=== PATIENT | male | born 1935 | race Caucasian/White ===

== ENCOUNTER 2018-04-09 14:10 | Inpatient (IN) | payer MEDICARE, BC ==
--- NOTE | 2018-04-09 14:26 | ED ---
General Adult HPI - General Chief complaint: Neuro Symptoms/Deficit Stated complaint: poss mild stroke Source: patient Mode of arrival: wheelchair Limitations: no limitations - History of Present Illness Initial comments: Dictation was produced using [employer] dictation software. please excuse any grammatical, word or spelling errors. Chief Complaint: 82-year-old male past medical history of CVA presents with instructions from prior care physician to be worked up for CVA. History of Present Illness: He is 82-year-old male who has been having symptoms of intermittent dizziness, difficulty ambulating for approximately one week. He was seen by his primary care physician today to come to the emergency department for stroke workup. Patient wasn't even having these symptoms for one week. He was seen 3 or 4 days ago where he was thought to have respiratory infection. She states that she feels as though his symptoms are worse with sudden head movements. He reports that he had his gait analyzed at the primary care physician's office and he reports that he is unable to do heel-to-toe walking. Patient also does feel ataxic with his extremities worse on the left than the right. She has extensive history of CVAs. The ROS documented in this emergency department record has been reviewed and confirmed by me. Those systems with pertinent positive or negative responses have been documented in the HPI. All other systems are other negative and/or noncontributory. - Related Data Home Medications Medication Instructions Recorded Confirmed Hydrochlorothiazide [Hydrodiuril] 12.5 mg PO DAILY 03/11/15 04/09/18 Omeprazole [PriLOSEC] 20 mg PO AC-BRKFST 03/11/15 04/09/18 Fosinopril [Monopril] 10 mg PO DAILY 04/09/18 04/09/18 Multivitamins, Thera [Multivitamin 1 tab PO DAILY 04/09/18 04/09/18 (formulary)] Propylene Glycol [Systane Complete] 1 drop BOTH EYES BID 04/09/18 04/09/18 carBAMazepine [TEGretol] 200 mg PO BID 04/09/18 04/09/18 Previous Rx's Medication Instructions Recorded Atorvastatin [Lipitor] 80 mg PO HS #30 tab 03/11/15 Clopidogrel [Plavix] 75 mg PO DAILY #30 tab 03/11/15 Allergies Allergy/AdvReac Type Severity Reaction Status Date / Time ibuprofen [From Advil] Allergy Swelling Verified 04/09/18 14:56 naproxen [From Aleve] Allergy Swelling Verified 04/09/18 14:56 Review of Systems ROS Statement: Those systems with pertinent positive or pertinent negative responses have been documented in the HPI. ROS Other: All systems not noted in ROS Statement are negative. Past Medical History Past Medical History: CVA/TIA, GERD/Reflux, Hyperlipidemia, Hypertension History of Any Multi-Drug Resistant Organisms: None Reported Past Surgical History: Appendectomy, Hernia Repair, Tonsillectomy Past Anesthesia/Blood Transfusion Reactions: No Reported Reaction Past Psychological History: No Psychological Hx Reported Smoking Status: Never smoker Past Alcohol Use History: None Reported Past Drug Use History: None Reported General Exam - General Exam Comments Initial Comments: PHYSICAL EXAM: General Impression: Alert and oriented x3, not in acute distress HEENT: Normocephalic atraumatic, extra-ocular movements intact, pupils equal and reactive to light bilaterally, mucous membranes moist. Cardiovascular: Heart regular rate and rhythm, S1&S2 audible, no murmurs, rubs or gallops Chest: Lungs clear to auscultation bilaterally, no rhonchi, no wheeze, no rales Abdomen: Bowel sounds present, abdomen soft, non-tender, non-distended, no organomegaly Musculoskeletal: Pulses present and equal in all extremities, no peripheral edema Motor: Power 5/5 bilaterally, no focal deficits noted Neurological: CN II-XII grossly intact, no focal motor or sensory deficits noted while ataxia with gait Skin: Intact with no visualized rashes Psych: Normal affect and mood Limitations: no limitations Course Vital Signs 04/09/18 14:13 Temperature 97.9 F Pulse Rate 66 Respiratory 18 Rate Blood Pressure 170/81 O2 Sat by Pulse 97 Oximetry Medical Decision Making - Medical Decision Making ED course: 82 yo male sent in by his primary care physician for stroke workup. Patient has been having symptoms for one week. Patient had a candidate for TPA or neurovascular therapy given duration of symptoms. Vital signs upon arrival shows blood pressure 170/81. Discussed patient case with Dr. Jaimes who believes that patient is abnormal. He is worried about vertebrobasilar insufficiency or posterior stroke. Patient is showing physical signs of possible vertebrobasilar insufficiency. Computed tomography scan of the head was obtained showing no acute process. Labs and EKG are unremarkable. Patient given aspirin chest x-ray shows no acute processes. Patient be admitted to [facility]. Neurology on consult. EKG interpretation: Ventricular rate 66, RI interval 174, QRS 84, QTC 429, normal sinus rhythm. No RI prolongation, no QTC prolongation, no ST or T-wave changes noted. Overall, this EKG is unremarkable - Lab Data Result diagrams: 04/09/18 14:35 04/09/18 14:35 Lab Results 04/09/18 04/09/18 04/09/18 Range/Units 14:35 14:35 14:35 WBC 5.7 (3.8-10.6) k/uL RBC 5.15 (4.30-5.90) m/uL Hgb 15.3 (13.0-17.5) gm/dL Hct 46.6 (39.0-53.0) % MCV 90.4 (80.0-100.0) fL MCH 29.8 (25.0-35.0) pg MCHC 32.9 (31.0-37.0) g/dL RDW 12.4 (11.5-15.5) % Plt Count 206 (150-450) k/uL Neutrophils % 57 % Lymphocytes % 25 % Monocytes % 9 % Eosinophils % 4 % Basophils % 1 % Neutrophils # 3.2 (1.3-7.7) k/uL Lymphocytes # 1.4 (1.0-4.8) k/uL Monocytes # 0.5 (0-1.0) k/uL Eosinophils # 0.2 (0-0.7) k/uL Basophils # 0.0 (0-0.2) k/uL PT (9.0-12.0) sec INR (<1.2) APTT (22.0-30.0) sec Sodium 133 L (137-145) mmol/L Potassium 3.9 (3.5-5.1) mmol/L Chloride 94 L (98-107) mmol/L Carbon Dioxide 29 (22-30) mmol/L Anion Gap 10 mmol/L BUN 15 (9-20) mg/dL Creatinine 0.83 (0.66-1.25) mg/dL Est GFR (CKD-EPI)AfAm >90 (>60 ml/min/1.73 sqM) Est GFR (CKD-EPI)NonAf 82 (>60 ml/min/1.73 sqM) Glucose 95 (74-99) mg/dL Calcium 9.4 (8.4-10.2) mg/dL Total Bilirubin 0.6 (0.2-1.3) mg/dL AST 46 (17-59) U/L ALT 27 (21-72) U/L Alkaline Phosphatase 96 (38-126) U/L Total Creatine Kinase 78 (55-170) U/L CK-MB (CK-2) 1.1 (0.0-2.4) ng/mL CK-MB (CK-2) Rel Index 1.4 Troponin I <0.012 (0.000-0.034) ng/mL Total Protein 7.7 (6.3-8.2) g/dL Albumin 4.2 (3.5-5.0) g/dL 04/09/18 Range/Units 14:35 WBC (3.8-10.6) k/uL RBC (4.30-5.90) m/uL Hgb (13.0-17.5) gm/dL Hct (39.0-53.0) % MCV (80.0-100.0) fL MCH (25.0-35.0) pg MCHC (31.0-37.0) g/dL RDW (11.5-15.5) % Plt Count (150-450) k/uL Neutrophils % % Lymphocytes % % Monocytes % % Eosinophils % % Basophils % % Neutrophils # (1.3-7.7) k/uL Lymphocytes # (1.0-4.8) k/uL Monocytes # (0-1.0) k/uL Eosinophils # (0-0.7) k/uL Basophils # (0-0.2) k/uL PT 10.4 (9.0-12.0) sec INR 1.0 (<1.2) APTT 27.1 (22.0-30.0) sec Sodium (137-145) mmol/L Potassium (3.5-5.1) mmol/L Chloride (98-107) mmol/L Carbon Dioxide (22-30) mmol/L Anion Gap mmol/L BUN (9-20) mg/dL Creatinine (0.66-1.25) mg/dL Est GFR (CKD-EPI)AfAm (>60 ml/min/1.73 sqM) Est GFR (CKD-EPI)NonAf (>60 ml/min/1.73 sqM) Glucose (74-99) mg/dL Calcium (8.4-10.2) mg/dL Total Bilirubin (0.2-1.3) mg/dL AST (17-59) U/L ALT (21-72) U/L Alkaline Phosphatase (38-126) U/L Total Creatine Kinase (55-170) U/L CK-MB (CK-2) (0.0-2.4) ng/mL CK-MB (CK-2) Rel Index Troponin I (0.000-0.034) ng/mL Total Protein (6.3-8.2) g/dL Albumin (3.5-5.0) g/dL Disposition Clinical Impression: CVA (cerebral vascular accident) Disposition: ADMITTED IP TO THIS HOSP Condition: Fair Referrals: Serafin Jimenes DO [Primary Care Provider] - 1-2 days Decision Time: 16:12
[2018-04-09 14:57] LABS: Basophils % (A) 1 %; Eosinophils # (A) 0.2 k/uL (0-0.7); Eosinophils % (A) 4 %; HCT 46.6 % (39.0-53.0); HGB 15.3 gm/dL (13.0-17.5); Lymphocytes # (A) 1.4 k/uL (1.0-4.8); Lymphocytes % (A) 25 %; MCH 29.8 pg (25.0-35.0); MCHC 32.9 g/dL (31.0-37.0); MCV 90.4 fL (80.0-100.0); Mean Platelet Volume 6.8; Monocytes # (A) 0.5 k/uL (0-1.0); Monocytes % (A) 9 %; Neutrophils # (A) 3.2 k/uL (1.3-7.7); Neutrophils % (A) 57 %; Platelet Count 206 k/uL (150-450); RBC 5.15 m/uL (4.30-5.90); RDW 12.4 % (11.5-15.5); WBC 5.7 k/uL (3.8-10.6)
[2018-04-09 14:59] LABS: Partial Thromboplastin Time 27.1 sec (22.0-30.0); Prothrombin Time 10.4 sec (9.0-12.0)
[2018-04-09 15:04] LABS: Creatine Kinase 78 U/L (55-170)
[2018-04-09 15:05] LABS: ALT 27 U/L (21-72); AST 46 U/L (17-59); Albumin 4.2 g/dL (3.5-5.0); Alkaline Phosphatase 96 U/L (38-126); Anion Gap 10 mmol/L; Blood Urea Nitrogen 15 mg/dL (9-20); Calcium 9.4 mg/dL (8.4-10.2); Carbon Dioxide 29 mmol/L (22-30); Chloride 94 mmol/L (98-107); Glucose 95 mg/dL (74-99); Potassium 3.9 mmol/L (3.5-5.1); Sodium 133 mmol/L (137-145); Total Bilirubin 0.6 mg/dL (0.2-1.3); Total Protein 7.7 g/dL (6.3-8.2)
[2018-04-09 15:16] LABS: Creatine Kinase MB 1.1 ng/mL (0.0-2.4); Troponin I <0.012 ng/mL (0.000-0.034)
--- NOTE | 2018-04-09 15:24 | CT ---
EXAMINATION TYPE: CT brain wo con DATE OF EXAM: 04/09/2018 COMPARISON: 03/10/2015 HISTORY: History of TIA. Difficulty with speech and dizziness. CT DLP: 1068.4 mGycm Automated exposure control for dose reduction was used. FINDINGS: Mild generalized degenerative change. White matter low attenuation is nonspecific but most typical of remote microvascular ischemia. No midline shift or mass effect. Calvarium intact. Changes of chronic sinusitis noted. Intracranial atherosclerotic changes are noted. 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 Calcification the basal ganglia is stable IMPRESSION: 1. No acute hemorrhage or mass effect. Nonspecific white matter changes and degenerative changes. If there is concern for acute ischemia correlate with MRI as clinically warranted.
[2018-04-09] MEDS ORDERED: NALOXONE 0.4 MG/ML 1 ML VIAL IV PRN (16:06)
[2018-04-09] MEDS ORDERED: ASPIRIN 81 MG PO STA (16:07)
--- NOTE | 2018-04-09 16:13 | XR ---
EXAMINATION TYPE: XR chest 1V portable DATE OF EXAM: 04/09/2018 COMPARISON: NONE HISTORY: Altered mental status TECHNIQUE: Single frontal view of the chest is obtained. FINDINGS: There are overlying cardiac leads. There is no focal air space opacity, pleural effusion, o r pneumothorax seen. The cardiac silhouette size is within normal limits. The osseous structures a re intact. IMPRESSION: No acute process.
[2018-04-09] MEDS ORDERED: ACETAMINOPHEN TAB 325 MG TAB PO PRN (16:51)
[2018-04-09] MEDS: SODIUM CHLORIDE 0.9% 1,000 ML IV SCH (16:51)
[2018-04-09] MEDS ORDERED: HYDROcodone/APAP 5-325MG 1 EACH TAB PO PRN (16:51)
--- NOTE | 2018-04-09 17:18 | P.HPIM ---
History of Present Illness H&P Date: 04/09/18 Chief Complaint: Ataxia, slurred speech 82-year-old male with PMH of hypertension, hyperlipidemia, 3 previous TIAs in the past presents the ED for ataxia and slurred speech. Patient states that his symptoms have been ongoing since last weekend, April 03. Patient reports a constellation of symptoms. Patient complains of dizziness which he describes as vertigo. His dizziness is worsened with sudden movements of his head. Along with the dizziness, patient reports intermittent double vision and gait instability. He was seen last Thursday by his PCP for nausea and vomiting along with some shortness of breath and he was diagnosed with a viral URI. He had a follow-up with his PCP this morning. Patient continued to complain of worsening of these symptoms, had an elevated blood pressure, and had a positive Romberg. He was unable to walk from toe to toe. This prompted his PCP to call EMS. Patient also complains of slowed thinking and wrong pronunciation of words. Patient also complains of chronic headaches, but associates this with his sinus issues. Previously, he was able to ambulate fine without any assistive devices. Patient also claims that he had no memory issues. Patient reports a history of 3 TIAs with no residual weakness. Of note, patient states he fell 3 weeks ago, hitting his head and twisting his ankle. He denied any loss of consciousness at that time and states that it was a mechanical fall. Patient denies any lower extremity swelling, nausea, vomiting, fever, cough, chest pain, shortness of breath, palpitations, changes in urination or bowel habits. No changes in appetite or weight. Patient states that he lives with his and he is well taken care of. His son lives next door and frequently visits the couple. Patient states that he would like for his to make decisions for him if he is unable to do so. Patient would also like to remain full code. In the ED, CBC and coagulation panel was negative. CMP was unremarkable except for a sodium of 133 and chloride of 94. Initial troponin was less than 0.012, EKG showing normal sinus rhythm with left axis deviation. CT of the brain was negative for acute hemorrhage or mass effect. Patient is admitted for ataxia and slurred speech, rule out CVA. Neurology is on consult. Review of Systems All systems: negative Past Medical History Past Medical History: CVA/TIA, GERD/Reflux, Hyperlipidemia, Hypertension History of Any Multi-Drug Resistant Organisms: None Reported Past Surgical History: Appendectomy, Hernia Repair, Tonsillectomy Past Anesthesia/Blood Transfusion Reactions: No Reported Reaction Past Psychological History: No Psychological Hx Reported Smoking Status: Never smoker Past Alcohol Use History: None Reported Past Drug Use History: None Reported Medications and Allergies Home Medications Medication Instructions Recorded Confirmed Type Atorvastatin [Lipitor] 80 mg PO HS #30 tab 03/11/15 04/09/18 Rx Clopidogrel [Plavix] 75 mg PO DAILY #30 tab 03/11/15 04/09/18 Rx Hydrochlorothiazide [Hydrodiuril] 12.5 mg PO DAILY 03/11/15 04/09/18 History Omeprazole [PriLOSEC] 20 mg PO AC-BRKFST 03/11/15 04/09/18 History Fosinopril [Monopril] 10 mg PO DAILY 04/09/18 04/09/18 History Multivitamins, Thera [Multivitamin 1 tab PO DAILY 04/09/18 04/09/18 History (formulary)] Propylene Glycol [Systane Complete] 1 drop BOTH EYES BID 04/09/18 04/09/18 History carBAMazepine [TEGretol] 200 mg PO BID 04/09/18 04/09/18 History Allergies Allergy/AdvReac Type Severity Reaction Status Date / Time ibuprofen [From Advil] Allergy Swelling Verified 04/09/18 14:56 naproxen [From Aleve] Allergy Swelling Verified 04/09/18 14:56 Physical Exam Vitals: Vital Signs Temp Pulse Resp BP Pulse Ox 04/09/18 16:45 72 27 H 185/109 97 04/09/18 16:38 65 46 H 178/118 97 04/09/18 14:13 97.9 F 66 18 170/81 97 Intake and Output 04/09/18 04/09/18 04/09/18 06:59 14:59 22:59 Other: Weight 77.564 kg General: [non toxic], [no distress], [appears at stated age] Derm: [warm], [dry] Head: [atraumatic], [normocephalic], [symmetric] Eyes: [EOMI], [no lid lag], [anicteric sclera] Mouth: [no lip lesion], [mucus membranes moist] Cardiovascular: [S1S2 reg], [no murmur], [positive DP pulse bilateral] Lungs: [CTA bilateral], [no rhonchi, no rales] , [no accessory muscle use] Abdominal: [soft], [ nontender to palpation], [no guarding], [no appreciable organomegaly] Ext: [no gross muscle atrophy], [no edema], [no contractures] Neuro: [ CN II-XI grossly intact], [strength and sensation intact in all 4 extremities], [gait not tested] Psych: [Alert], [oriented], [appropriate affect] Results CBC & Chem 7: 04/09/18 14:35 04/09/18 14:35 Labs: Abnormal Lab Results - Last 24 Hours (Table) 04/09/18 Range/Units 14:35 Sodium 133 L (137-145) mmol/L Chloride 94 L (98-107) mmol/L Thrombosis Risk Factor Assmnt - Choose All That Apply Any of the Below Risk Factors Present?: No Other Risk Factors: No Each Risk Factor Represents 3 Points: Age 75 years or older Thrombosis Risk Factor Assessment Total Risk Factor Score: 3 Thrombosis Risk Factor Assessment Level: Very Low Risk Assessment and Plan Assessment: Assessment and Plan 1. Ataxia: Possibly CVA, brainstem stroke. CT brain shows no acute intracranial abnormalities. Start Plavix 75 mg PO QD and Lipitor 80 mg PO QHS. Fall precautions. Neurochecks. Telemetry monitoring. Swallow screen pending. FU PT/OT/ST, Neurology, Echocardiogram, Carotid US, EEG, MRI brain, Lipid panel 2. Hypertension: BP 183/115. Continue Lisinopril 10 mg PO QD, HCTZ 12.5 mg PO QD. Monitor vitals, adjust medications as necessary. 3. DVT/GI Prophylaxis: Heparin 5000 units SUBCUT BID. Patient is being admitted for ataxia, slurred speech and vertigo-like symptoms. Concern for brainstem CVA, stroke workup underway. Neurology on consult.
[2018-04-09] MEDS ORDERED: LORazepam 2 MG/ML INJ IV STA (17:38)
[2018-04-09 18:18] VITALS: BMI 25.9
[2018-04-09] MEDS: FAMOTIDINE 20 MG TAB PO SCH ×2 (20:06→20:14)
[2018-04-09] MEDS: ARTIFICIAL TEARS-HYPROMELLOSE DROPS 15 ML BTL BOTH EYES SCH (20:07)
[2018-04-09] MEDS: HEPARIN SODIUM,PORCINE 5,000 UNIT/ML 1 ML VIAL SQ SCH (20:13)
[2018-04-09] MEDS: ATORVASTATIN 80 MG TAB PO SCH (20:13)
[2018-04-09] MEDS: carBAMazepine 200 MG TAB PO SCH (20:13)
--- NOTE | 2018-04-09 20:23 | MR ---
EXAMINATION TYPE: MR brain wo con DATE OF EXAM: 04/09/2018 COMPARISON: HISTORY: HX of Prior Strokes, Headaches, Left sided weakness, Unstaedy Stella Standard multiplanar, multisequence MRI departmental protocol Multiplanar, multisequence images of the brain were acquired. Diffusion weighted imaging was performe d. FINDINGS: There is diffuse cerebral cortical atrophy. There is no mass effect nor midline shift. Ther e is no evidence of intracranial hemorrhage. I see no evidence of an acute infarct. There are numerou s patchy areas of increased signal in the periventricular white matter mainly at the hansen-white matte r junction of both cerebral hemispheres. There is sparing of the cerebellum. Foci measure up to 1 cm. Total number is approximately 25. The brainstem is intact. Corpus callosum is intact. Sella turcica is unremarkable. There is minimal m ucosal thickening in the anterior ethmoid air cells. There is 1 cm mucous retention cyst in the poste rior sphenoid sinus. IMPRESSION: Cerebral atrophy and multiple white matter high signal foci in both cerebral hemispheres at the hansen- white matter junction more likely related to chronic small vessel ischemia. No evidence of cortical i nfarct. Mild sinusitis.
--- NOTE | 2018-04-09 22:58 | US ---
EXAMINATION TYPE: US carotid duplex BILAT DATE OF EXAM: 04/09/2018 COMPARISON: MR Brain, US CLINICAL HISTORY: CVA. Left foot weakness, memory loss, prior TIA x 3 per patient EXAM MEASUREMENTS: RIGHT: Peak Systolic Velocity (PSV) cm/sec ----- Right CCA: 45.9 ----- Right ICA: 74.3 ----- Right ECA: 88.1 ICA/CCA ratio: 1.6 RIGHT: End Diastole cm/sec ----- Right CCA: 0.0 ----- Right ICA: 12.8 ----- Right ECA: 0.0 LEFT: Peak Systolic Velocity (PSV) cm/sec ----- Left CCA: 51.7 ----- Left ICA: 55.9 ----- Left ECA: 74.3 ICA/CCA ratio: 1.1 LEFT: End Diastole cm/sec ----- Left CCA: 0.0 ----- Left ICA: 14.0 ----- Left ECA: 0.0 VERTEBRALS (direction of flow): Right Vertebral: Antegrade Left Vertebral: Antegrade Rhythm: Normal Moderate, irregular, and mixed wall changes are noted at bilateral carotid bifurcation, but PSV is wn l bilaterally. IMPRESSION: There is antegrade flow in the vertebral arteries. Images and measurements suggest up to 25% stenosis in both internal carotid arteries. Criteria for Assigning % of Stenosis / Diameter reduction (Estimation based on the indirect measurements of the internal carotid artery velocities (ICA PSV). 1. Normal (no stenosis)=ICA PSV < 125 cm/s: ratio < 2.0: ICA EDV<40 cm/s. 2. Less than 50% stenosis=ICA PSV < 125 cm/s: ratio < 2.0: ICA EDV<40 cm/s. 3. 50 to 69% stenosis=ICA PSV of 125 to 230 cm/s: ration 2.0 ? 4.0: ICA EDV 40-100 cm/s. 4. Greater than 70% stenosis to near occlusion= ICA PSV > 230 cm/s: ratio > 4.0: ICA EDV > 100 cm/s. 5. Near occlusion= ICA PSV velocities may be low or undetectable: variable ratio and ICA EDV. 6. Total occlusion=unable to detect flow.
[2018-04-10 08:07] LABS: Cholesterol 184 mg/dL (<200); HDL Cholesterol 78 mg/dL (40-60); LDL Cholesterol,Calculated 84 mg/dL (0-99); Triglycerides 110 mg/dL (<150)
[2018-04-10] MEDS: ARTIFICIAL TEARS-HYPROMELLOSE DROPS 15 ML BTL BOTH EYES SCH ×2 (09:59→19:18)
[2018-04-10] MEDS: carBAMazepine 200 MG TAB PO SCH ×2 (10:00→20:24)
[2018-04-10] MEDS: HYDROCHLOROTHIAZIDE 12.5 MG CAP PO SCH (10:00)
[2018-04-10] MEDS: CLOPIDOGREL 75 MG TAB PO SCH (10:00)
[2018-04-10] MEDS: LISINOPRIL 10 MG TAB PO SCH (10:00)
[2018-04-10] MEDS: FAMOTIDINE 20 MG TAB PO SCH ×2 (10:01→20:24)
[2018-04-10] MEDS: HEPARIN SODIUM,PORCINE 5,000 UNIT/ML 1 ML VIAL SQ SCH ×2 (10:01→20:24)
--- NOTE | 2018-04-10 10:19 | ECHOF ---
Referral Reason:CVA MEASUREMENTS -------- HEIGHT: 172.7 cm WEIGHT: 77.6 kg BP: 128/69 RVIDd: 2.2 cm (< 3.3) IVSd: 1.1 cm (0.6 - 1.1) LVIDd: 3.9 cm (3.9 - 5.3) LVPWd: 1.3 cm (0.6 - 1.1) IVSs: 1.7 cm LVIDs: 2.6 cm LVPWs: 1.6 cm LAESV Index (A-L): 18.97 ml/m Ao Diam: 3.3 cm (2.0 - 3.7) AV Cusp: 2.0 cm (1.5 - 2.6) LA Diam: 2.2 cm (2.7 - 3.8) MV EXCURSION: 12.495 mm (> 18.000) MV EF SLOPE: 83 mm/s (70 - 150) EPSS: 0.9 cm MV E Lauro: 0.58 m/s MV DecT: 238 ms MV A Lauro: 0.88 m/s MV E/A Ratio: 0.65 RAP: 5.00 mmHg RVSP: 20.19 mmHg FINDINGS -------- Sinus rhythm. This was a technically good study. The left ventricular size is normal. There is borderline concentric left ventricular hypertrophy. Overall left ventricular systolic function is normal with, an EF between 55 - 60 %. The right ventricle is normal in size and function. The left atrium is normal in size. The right atrium is normal in size. The aortic valve is trileaflet and appears structurally normal. There is trace mitral regurgitation. Mild tricuspid regurgitation present. The right ventricular systolic pressure, as measured by Doppl er, is 20.19mmHg. The pulmonic valve was not well visualized. The aortic root size is normal. IVC Not well visulized. The pericardium is normal. There is a small pericardial effusion is located near the right ventricl e. CONCLUSIONS -------- 1. Sinus rhythm. 2. This was a technically good study. 3. The left ventricular size is normal. 4. There is borderline concentric left ventricular hypertrophy. 5. Overall left ventricular systolic function is normal with, an EF between 55 - 60 %. 6. The right ventricle is normal in size and function. 7. The left atrium is normal in size. 8. The right atrium is normal in size. 9. The aortic valve is trileaflet and appears structurally normal. 10. There is trace mitral regurgitation. 11. Mild tricuspid regurgitation present. 12. The right ventricular systolic pressure, as measured by Doppler, is 20.19mmHg. 13. The pulmonic valve was not well visualized. 14. The aortic root size is normal. 15. IVC Not well visulized. 16. The pericardium is normal. 17. There is a small pericardial effusion is located near the right ventricle. GENER[employer] MANAGER: Sugey Woods RDCS
--- NOTE | 2018-04-10 12:38 | EEG ---
ELECTROENCEPHALOGRAM REPORT DATE OF SERVICE: 04/10/2018 REASON FOR TESTING: Transient ischemic attack. DESCRIPTION OF THE PROCEDURE: This EEG was performed using a 21-channel digital electroencephalograph, following international 10-20 system. DESCRIPTION OF THE RECORDING: From the beginning of the tracing, and with the patient's eyes closed, the background rhythm was mostly consisting of 8 hertz Alpha frequency in the posterior occipital leads. No obvious asymmetry is seen. Photic stimulation was performed with a minimal driving response seen. No pathological waves were elicited. Later in the tracing, more frequent muscle artifacts are seen on the right leads compared to the left. Hyperventilation was not performed. The patient remains awake throughout the tracing. No epileptiform discharges were seen. His EKG lead showed an irregularly irregular rhythm with a normal rate. INTERPRETATION: This awake EEG can be considered within normal limits except for muscle asymmetry noticed later in the tracing. No epileptiform discharges were seen. The absence of epileptiform discharges does not rule out the diagnosis of epilepsy, therefore, clinical correlation is recommended. Of note, his EKG lead showed an irregularly irregular rhythm with a normal rate. MMODL / IJN: [id number] /
--- NOTE | 2018-04-10 15:25 | P.CONS ---
History of Present Illness - Reason for Consult Consult date: 04/10/18 Ataxia - Chief Complaint Ataxia - History of Present Illness This is a pleasant 82-year-old male being evaluated by the neurology service for intermittent dizziness over the past week or so. He was seen by his primary care physician twice this week. He had some elevated blood pressure which persisted. 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 He reports no history of stroke. Over the last couple days he has had episodic diplopia. When he was examined and his primary care physician's office prior to coming to the emergency room he was having some problems with coordination also. CT in the emergency room showed no acute intracranial abnormalities his carotid Doppler showed 25% bilateral internal carotid artery stenosis. There was no flow limitation reported. MRI of the brain showed no acute intracranial abnormalities or hemorrhage. Age- appropriate cortical atrophy and significant diffuse chronic small vessel ischemic changes. He denies any recent injury or significant illness. At the time my exam is resting comfortably in bed in no acute distress. He is currently on atorvastatin 80 mg a day and Plavix 75 mg daily along with his other medications. Note that he has been on telemetry and no arrhythmia has been reported. However, an EEG was done in the tracing showed possible irregularly irregular rhythm. Otherwise his EEG was normal. He does give a history about 3 years ago having episodic vertigo mostly with head movement. Review of Systems All systems: negative Constitutional: Reports as per HPI Past Medical History Past Medical History: CVA/TIA, GERD/Reflux, Hyperlipidemia, Hypertension History of Any Multi-Drug Resistant Organisms: None Reported Past Surgical History: Appendectomy, Hernia Repair, Tonsillectomy Past Anesthesia/Blood Transfusion Reactions: No Reported Reaction Past Psychological History: No Psychological Hx Reported Smoking Status: Never smoker Past Alcohol Use History: None Reported Past Drug Use History: None Reported - Past Family History Father Family Medical History: COPD Medications and Allergies Home Medications Medication Instructions Recorded Confirmed Type Atorvastatin [Lipitor] 80 mg PO HS #30 tab 03/11/15 04/09/18 Rx Clopidogrel [Plavix] 75 mg PO DAILY #30 tab 03/11/15 04/09/18 Rx Hydrochlorothiazide [Hydrodiuril] 12.5 mg PO DAILY 03/11/15 04/09/18 History Omeprazole [PriLOSEC] 20 mg PO AC-BRKFST 03/11/15 04/09/18 History Fosinopril [Monopril] 10 mg PO DAILY 04/09/18 04/09/18 History Multivitamins, Thera [Multivitamin 1 tab PO DAILY 04/09/18 04/09/18 History (formulary)] Propylene Glycol [Systane Complete] 1 drop BOTH EYES BID 04/09/18 04/09/18 History carBAMazepine [TEGretol] 200 mg PO BID 04/09/18 04/09/18 History Allergies Allergy/AdvReac Type Severity Reaction Status Date / Time ibuprofen [From Advil] Allergy Swelling Verified 04/09/18 14:56 naproxen [From Aleve] Allergy Swelling Verified 04/09/18 14:56 Physical Exam Vitals: Vital Signs Temp Pulse Pulse Resp BP BP Pulse Ox 04/10/18 11:30 97.4 F L 67 18 131/83 97 04/10/18 09:00 97.2 F L 66 20 139/83 96 04/10/18 04:00 97.8 F 67 16 128/69 97 04/09/18 23:37 97.8 F 78 18 122/59 99 04/09/18 23:36 67 16 04/09/18 20:00 67 16 154/81 97 04/09/18 17:30 97.6 F 69 18 178/87 97 04/09/18 16:53 70 20 183/115 97 04/09/18 16:45 72 20 185/109 97 04/09/18 16:38 65 20 178/118 97 Intake and Output 04/10/18 04/10/18 04/10/18 06:59 14:59 22:59 Intake Total 120 200 Balance 120 200 Intake: Oral 120 200 Other: Voiding Method Toilet Urinal # Voids 1 1 Weight 75 kg - Constitutional General appearance: average body habitus, cooperative, no acute distress - EENT He has intermittent weakness noted in the left lateral rectus causing an occasional inward gaze of the left. Eyes: no abnormal pupil, no EOMI, PERRLA, no ptosis ENT: hearing grossly normal - Neck Neck: normal ROM, no rigidity - Respiratory Respiratory: negative: prolonged expiration, prolonged inspiration - Cardiovascular Rhythm: regular - Gastrointestinal General gastrointestinal: no distended, no tenderness - Neurologic The patient is alert awake and oriented 3. Speech and language are normal. There is no facial asymmetry. Strength is 5 out of 5 in bilateral upper and lower extremities. There is no sensory deficit. No tremors or seizures are seen. Cranial nerves II through XII are intact globally except as mentioned above. Results CBC & Chem 7: 04/09/18 14:35 04/09/18 14:35 Labs: Abnormal Lab Results - Last 24 Hours (Table) 04/09/18 04/09/18 Range/Units 14:35 14:35 Sodium 133 L (137-145) mmol/L Chloride 94 L (98-107) mmol/L HDL Cholesterol 78 H (40-60) mg/dL Assessment and Plan (1) Hypertension Current Visit: Yes Status: Chronic Code(s): I10 - ESSENTIAL (PRIMARY) HYPERTENSION SNOMED Code(s): 70711997 (2) Hyperlipidemia Current Visit: Yes Status: Chronic Code(s): E78.5 - HYPERLIPIDEMIA, UNSPECIFIED SNOMED Code(s): 44689492 (3) Small vessel disease, cerebrovascular Current Visit: Yes Status: Chronic Code(s): I67.9 - CEREBROVASCULAR DISEASE , UNSPECIFIED SNOMED Code(s): 192060455 (4) Diplopia Current Visit: Yes Status: Acute Code(s): H53.2 - DIPLOPIA SNOMED Code(s) : 74413332 (5) Vertigo Current Visit: Yes Status: Acute Code(s): R42 - DIZZINESS AND GIDDINESS SNOMED Code(s): 768874346 (6) Gait abnormality Current Visit: Yes Status: Acute Code(s): R26.9 - UNSPECIFIED ABNORMALITIES OF GAIT AND MOBILITY SNOMED Code(s): 66480156 (7) Transient cerebral ischemia Current Visit: No Status: Suspected Code(s): G45.9 - TRANSIENT CEREBRAL ISCHEMIC ATTACK, UNSPECIFIED SNOMED Code(s): 131165890 Plan: The patient likely suffered an episode of transient cerebral ischemia. He has a long history of TIA like symptoms and MRI findings of fairly extensive chronic small vessel ischemic disease. However, he has other symptoms suggestive of other neurological processes. His diplopia is likely caused by the eye muscle weakness stated above. I will acetylcholine receptor antibody to rule out myasthenia gravis. He actively sees ophthalmology for his history of glaucoma. Given his past history of ataxia and vertigo with head movement and his significant cardiovascular risk factors I will order a CTA of the head and neck to rule out any vertebrobasilar insufficiency. Continue Plavix and atorvastatin at current doses. Continue neurological checks and work with physical and occupational therapy. I have performed a history and physical on the above patient. I have reviewed the above note, and agree.
--- NOTE | 2018-04-10 15:25 | P.PN ---
Subjective Progress Note Date: 04/10/18 Principal diagnosis: Ataxia Patient was seen and examined. No acute events overnight. Patient reports complete resolution of his unstable gait. He denies any dizziness at this time. No blurry vision or slurred speech. Was able to walk with PT today. His is at bedside. He denies any chest pain, shortness of breath or palpitations. Objective - Vital Signs Vital signs: Vital Signs Temp 97.4 F L 04/10/18 11:30 Pulse 67 04/10/18 11:30 Resp 18 04/10/18 11:30 BP 131/83 04/10/18 11:30 Pulse Ox 97 04/10/18 11:30 Intake & Output 04/09/18 04/10/18 04/10/18 18:59 06:59 18:59 Intake Total 320 200 Balance 320 200 Weight 77.564 kg 75 kg Intake: Oral 320 200 Other: Voiding Method Toilet Urinal # Voids 1 1 - Exam General: [non toxic], [no distress], [appears at stated age] Derm: [warm], [dry] Head: [atraumatic], [normocephalic], [symmetric] Eyes: [EOMI], [no lid lag], [anicteric sclera] Mouth: [no lip lesion], [mucus membranes moist] Cardiovascular: [S1S2 reg], [no murmur], [positive DP pulse bilateral] Lungs: [CTA bilateral], [no rhonchi, no rales] , [no accessory muscle use] Abdominal: [soft], [ nontender to palpation], [no guarding], [no appreciable organomegaly] Ext: [no gross muscle atrophy], [no edema], [no contractures] Neuro: [strength and sensation intact in all 4 extremities], [gait not tested] Psych: [Alert], [oriented], [appropriate affect] - Labs CBC & Chem 7: 04/09/18 14:35 04/09/18 14:35 Labs: Abnormal Lab Results - Last 24 Hours (Table) 04/09/18 04/09/18 Range/Units 14:35 14:35 Sodium 133 L (137-145) mmol/L Chloride 94 L (98-107) mmol/L HDL Cholesterol 78 H (40-60) mg/dL Assessment and Plan Assessment: Assessment and Plan 1. Ataxia: Possibly CVA, brainstem stroke. CT brain shows no acute intracranial abnormalities. Start Plavix 75 mg PO QD and Lipitor 80 mg PO QHS. Fall precautions. Neurochecks. Telemetry monitoring. PT evaluated the patient, recommended home on discharge. MRI brain is negative for acute stroke. EEG is negative for epileptic discharges. Echocardiogram showed an EF of 55-60% with mild LVH. Carotid ultrasound shows 25% occlusion of the internal carotid artery bilaterally. FU PT/OT/ST, Neurology. 2. Hypertension: BP 131/83. Continue Lisinopril 10 mg PO QD, HCTZ 12.5 mg PO QD. Monitor vitals, adjust medications as necessary. 3. DVT/GI Prophylaxis: Heparin 5000 units SUBCUT BID. Patient is being admitted for ataxia, slurred speech and vertigo-like symptoms. Stroke workup negative so far. Symptoms have resolved, possibly a TIA. Patient has been working with physical therapy. Will follow neurology recommendations.
[2018-04-10] MEDS ORDERED: LORazepam 2 MG/ML INJ IV STA (15:50)
[2018-04-10] MEDS ORDERED: ASPIRIN 325 MG TAB PO SCH (16:08)
--- NOTE | 2018-04-10 17:03 | CT ---
EXAMINATION TYPE: CT angio head neck DATE OF EXAM: 04/10/2018 HISTORY: Dizziness. COMPARISON: CT DLP: 363.3 mGycm. Automated Exposure Control for Dose Reduction was Utilized. TECHNIQUE: CTA scan of the neck is performed with IV Contrast, patient injected with 65ml mL of Isov ue 370, axial images are obtained, coronal and sagittal reformatted images are reviewed. Three-D herrera nstructed images are created on an independent workstation and reviewed. FINDINGS: There is normal branching pattern of the great vessels on the aortic arch. Thoracic aorta is atheroma tous. There is bilateral arterial flow in the subclavian arteries. There is arterial flow in both alessandro tebral arteries. There is arterial flow in the common internal and external carotid arteries bilatera lly. There is mild plaque formation at the carotid artery bifurcations. There is approximate 40% narciso nal narrowing of the right internal carotid artery at the origin. There is approximate 25% stenosis o rigin left internal carotid artery. There is no evidence of carotid artery vertebral artery aneurysm or dissection. There is arterial flow in the vertebrobasilar artery system. There is arterial flow in the anterior middle and posterior cerebral arteries. There is no evidence o f aneurysm or neovascularity. There is no evidence of intracranial arterial stenosis. There is no mas s effect. There is normal contrast opacification of the venous sinuses. There is mild mucosal thicken ing in the sphenoid sinus posteriorly. IMPRESSION: Mild atherosclerotic vascular disease. There is approximate 40% stenosis proximal right internal llanes tid artery and 25% stenosis proximal left internal carotid artery. No intracranial abnormality identi fied.
[2018-04-10] MEDS: SODIUM CHLORIDE 0.9% 1,000 ML IV SCH (17:05)
[2018-04-10] MEDS: ATORVASTATIN 80 MG TAB PO SCH (20:24)
[2018-04-11] MEDS: CLOPIDOGREL 75 MG TAB PO SCH (08:01)
[2018-04-11] MEDS: carBAMazepine 200 MG TAB PO SCH (08:01)
[2018-04-11] MEDS: FAMOTIDINE 20 MG TAB PO SCH (08:01)
[2018-04-11] MEDS: HYDROCHLOROTHIAZIDE 12.5 MG CAP PO SCH (08:02)
[2018-04-11] MEDS: LISINOPRIL 10 MG TAB PO SCH (08:02)
[2018-04-11] MEDS: HEPARIN SODIUM,PORCINE 5,000 UNIT/ML 1 ML VIAL SQ SCH (08:02)
[2018-04-11] MEDS: ARTIFICIAL TEARS-HYPROMELLOSE DROPS 15 ML BTL BOTH EYES SCH (08:02)
[2018-04-11 08:21] VITALS: PULSE 67; RESP 18; TEMP 97.6
--- NOTE | 2018-04-11 09:11 | P.DS ---
Providers Date of admission: 04/09/18 16:06 Expected date of discharge: 04/11/18 Attending physician: Tiffani Fraser MD Consults: 04/09/18 16:08 Consult Physician Routine Consulting Provider: Swapna Nava Consult Reason/Comments: cva Do you want consulting provider notified?: Yes 04/10/18 14:05 Consult Physician Routine Consulting Provider: Rachid Montemayor Consult Reason/Comments: Irregular heart rythym Do you want consulting provider notified?: Yes Primary care physician: Serafin Jimenes - Discharge Diagnosis(es) (1) Hypertension Current Visit: Yes Status: Chronic (2) Transient cerebral ischemia Current Visit: No Status: Suspected Hospital Course: 82-year-old male with PMH of hypertension, hyperlipidemia, 3 previous TIAs in the past presents the ED for ataxia and slurred speech. Patient states that his symptoms have been ongoing since last weekend, April 03. Patient reports a constellation of symptoms. Patient complains of dizziness which he describes as vertigo. His dizziness is worsened with sudden movements of his head. Along with the dizziness, patient reports intermittent double vision and gait instability. He was seen last Thursday by his PCP for nausea and vomiting along with some shortness of breath and he was diagnosed with a viral URI. He had a follow-up with his PCP this morning. Patient continued to complain of worsening of these symptoms, had an elevated blood pressure, and had a positive Romberg. He was unable to walk from toe to toe. This prompted his PCP to call EMS. Patient also complains of slowed thinking and wrong pronunciation of words. Patient also complains of chronic headaches, but associates this with his sinus issues. Previously, he was able to ambulate fine without any assistive devices. Patient also claims that he had no memory issues. Patient reports a history of 3 TIAs with no residual weakness. Of note, patient states he fell 3 weeks ago, hitting his head and twisting his ankle. He denied any loss of consciousness at that time and states that it was a mechanical fall. Patient denies any lower extremity swelling, nausea, vomiting, fever, cough, chest pain, shortness of breath, palpitations, changes in urination or bowel habits. No changes in appetite or weight. Patient states that he lives with his and he is well taken care of. His son lives next door and frequently visits the couple. Patient states that he would like for his to make decisions for him if he is unable to do so. Patient would also like to remain full code. In the ED, CBC and coagulation panel was negative. CMP was unremarkable except for a sodium of 133 and chloride of 94. Initial troponin was less than 0.012, EKG showing normal sinus rhythm with left axis deviation. CT of the brain was negative for acute hemorrhage or mass effect. Patient is admitted for ataxia and slurred speech, rule out CVA. Neurology is on consult. All of the patient's symptoms resolved on the second day of admission. There was some concern for CVA. Patient was restarted on Plavix and Lipitor. He was placed on telemetry monitoring and fall precautions. Neurochecks were performed. MRI of the brain was performed and was negative for acute stroke. EEG was negative for epileptic discharges. Echocardiogram was done and showed an EF of 55-60% with mild LVH. Carotid ultrasound showed a 25% occlusion of the internal carotid artery bilaterally. Neurology was consulted and recommended CTA of the head and neck to rule out vertebrobasilar insufficiency. CTA of the head and neck showed 40% occlusion of the right internal carotid artery and 20% occlusion of the left internal carotid artery without intracranial abnormalities. Physical therapy evaluated the patient and recommended home on discharge. Patient was seen and examined prior to discharge. No acute events overnight. Patient reports complete resolution of his symptoms. He is able to take a shower this morning without any difficulties. He denies any dizziness or unstable gait. No chest pain, shortness of breath or palpitations. Patient is requesting to go home. He denies any blurry vision. General: [non toxic], [no distress], [appears at stated age] Derm: [warm], [dry] Head: [atraumatic], [normocephalic], [symmetric] Eyes: [EOMI], [no lid lag], [anicteric sclera] Mouth: [no lip lesion], [mucus membranes moist] Cardiovascular: [S1S2 reg], [no murmur], [positive DP pulse bilateral] Lungs: [CTA bilateral], [no rhonchi, no rales] , [no accessory muscle use] Abdominal: [soft], [ nontender to palpation], [no guarding], [no appreciable organomegaly] Ext: [no gross muscle atrophy], [no edema], [no contractures] Neuro: [strength and sensation intact in all 4 extremities], [gait not tested] Psych: [Alert], [oriented], [appropriate affect] Assessment and Plan 1. TIA: CT brain shows no acute intracranial abnormalities. Start Plavix 75 mg PO QD and Lipitor 80 mg PO QHS. Fall precautions. Neurochecks. Telemetry monitoring. PT evaluated the patient, recommended home on discharge. MRI brain is negative for acute stroke. EEG is negative for epileptic discharges. Echocardiogram showed an EF of 55-60% with mild LVH. Carotid ultrasound shows 25% occlusion of the internal carotid artery bilaterally. CTA of the head and neck shows 40% occlusion of the right internal carotid artery and 20% occlusion of the left internal carotid artery without intracranial abnormalities. Patient is cleared for discharge home by PT. FU PT/OT/ST, Neurology. 2. Hypertension: BP 147/90. Continue Lisinopril 10 mg PO QD, HCTZ 12.5 mg PO QD. Monitor vitals, adjust medications as necessary. 3. DVT/GI Prophylaxis: Heparin 5000 units SUBCUT BID. Patient symptoms have completely resolved. This is likely TIA. Stroke workup negative so far. Patient has been cleared by physical therapy. I will discharge the patient today with close follow-up with neurology Dr. Nava in order to follow-up with the acetylcholine antibody blood test and for further workup of his diplopia. This complex discharge took greater than 30 minutes. Pertinent Studies: CT brain brain MRI Carotid Doppler Echocardiogram EEG CTA of the head and neck Patient Condition at Discharge: Fair Plan - Discharge Summary Discharge Rx Participant: No New Discharge Prescriptions: Continue Omeprazole [PriLOSEC] 20 mg PO AC-BRKFST Hydrochlorothiazide [Hydrodiuril] 12.5 mg PO DAILY Atorvastatin [Lipitor] 80 mg PO HS #30 tab Clopidogrel [Plavix] 75 mg PO DAILY #30 tab carBAMazepine [TEGretol] 200 mg PO BID Propylene Glycol [Systane Complete] 1 drop BOTH EYES BID Fosinopril [Monopril] 10 mg PO DAILY Discontinued Multivitamins, Thera [Multivitamin (formulary)] 1 tab PO DAILY Discharge Medication List Atorvastatin [Lipitor] 80 mg PO HS #30 tab 03/11/15 [Rx] Clopidogrel [Plavix] 75 mg PO DAILY #30 tab 03/11/15 [Rx] Hydrochlorothiazide [Hydrodiuril] 12.5 mg PO DAILY 03/11/15 [History] Omeprazole [PriLOSEC] 20 mg PO AC-BRKFST 03/11/15 [History] Fosinopril [Monopril] 10 mg PO DAILY 04/09/18 [History] Propylene Glycol [Systane Complete] 1 drop BOTH EYES BID 04/09/18 [History] carBAMazepine [TEGretol] 200 mg PO BID 04/09/18 [History] Follow up Appointment(s)/Referral(s): Serafin Jimenes DO [Primary Care Provider] - 1-2 days Swapna Nava MD [STAFF PHYSICIAN] - 1 Week Activity/Diet/Wound Care/Special Instructions: Diet; HEART healthy Please follow-up with your primary care provider within 1-2 days of discharge. Please follow-up with neurology Dr. Nava within 1 week of discharge. Please take all medications as advised. Discharge Disposition: HOME SELF-CARE
[2018-04-11] MEDS ORDERED: LISINOPRIL 10 MG TAB PO STA (10:58)
--- NOTE | 2018-04-11 11:41 | P.PN ---
Subjective Progress Note Date: 04/11/18 Principal diagnosis: Ataxia This pleasant 82-year-old male continue be evaluated by the neurology service for intermittent dizziness over the past week. Since my last exam he has had no further incidents. He has a history of multiple TIAs over the past 15 years. Recall that her CT in the emergency room showed no acute intracranial abnormalities. MRI of the brain showed no acute intracranial abnormalities or hemorrhage. He does have extensive chronic small vessel ischemic changes. His EEG was normal. To rule out any significant vascular abnormality or vertebrobasilar insufficiency a CTA of the head and neck were done. It was normal other than mild atherosclerotic vascular disease. He has about 40% stenosis on the proximal right internal carotid artery and 25% on the left. There is no flow-limiting stenosis. Objective - Vital Signs Vital signs: Vital Signs Temp 97.6 F 04/11/18 08:00 Pulse 67 04/11/18 08:00 Resp 18 04/11/18 08:00 BP 147/90 04/11/18 08:00 Pulse Ox 97 04/11/18 08:00 Intake & Output 04/10/18 04/11/18 04/11/18 18:59 06:59 18:59 Intake Total 380 960 180 Balance 380 960 180 Weight 75.2 kg Intake: Oral 380 960 180 Other: Voiding Method Toilet Urinal # Voids 1 3 - Constitutional General appearance: Present: average body habitus, cooperative, no acute distress - EENT Eyes: Present: PERRLA. Absent: abnormal pupil, ptosis ENT: Present: hearing grossly normal - Neck Neck: Present: normal ROM. Absent: rigidity - Cardiovascular Rhythm: regular - Gastrointestinal General gastrointestinal: Absent: distended - Neurologic Neurologic Comment(s): The patient is alert awake and oriented 3. Speech and language are normal. There is no facial asymmetry. Strength is 5 out of 5 in bilateral upper and lower extremities. There is no sensory deficit. No tremors or seizures are seen. Cranial nerves II through XII are intact globally, except for the left lateral rectus weakness as mentioned yesterday.. - Labs CBC & Chem 7: 04/09/18 14:35 04/09/18 14:35 Assessment and Plan (1) Hypertension Current Visit: Yes Status: Chronic Code(s): I10 - ESSENTIAL (PRIMARY) HYPERTENSION SNOMED Code(s): 55534231 (2) Hyperlipidemia Current Visit: Yes Status: Chronic Code(s): E78.5 - HYPERLIPIDEMIA, UNSPECIFIED SNOMED Code(s): 79697115 (3) Small vessel disease, cerebrovascular Current Visit: Yes Status: Chronic Code(s): I67.9 - CEREBROVASCULAR DISEASE , UNSPECIFIED SNOMED Code(s): 356614348 (4) Diplopia Current Visit: Yes Status: Acute Code(s): H53.2 - DIPLOPIA SNOMED Code(s) : 63820409 (5) Vertigo Current Visit: Yes Status: Acute Code(s): R42 - DIZZINESS AND GIDDINESS SNOMED Code(s): 506400042 (6) Gait abnormality Current Visit: Yes Status: Acute Code(s): R26.9 - UNSPECIFIED ABNORMALITIES OF GAIT AND MOBILITY SNOMED Code(s): 33899311 (7) Transient cerebral ischemia Current Visit: No Status: Suspected Code(s): G45.9 - TRANSIENT CEREBRAL ISCHEMIC ATTACK, UNSPECIFIED SNOMED Code(s): 192955736 Plan: The patient likely suffered an episode of transient cerebral ischemia. He has a long history of TIA like symptoms and MRI findings of fairly extensive chronic small vessel ischemic disease. However, he has other symptoms suggestive of other neurological processes. His diplopia is likely caused by the eye muscle weakness stated above. I did order a acetylcholine receptor antibody to rule out myasthenia gravis. We do not have those results yet. He actively sees ophthalmology for his history of glaucoma. Given his past history of ataxia and vertigo with head movement and his significant cardiovascular risk factors I did order a CTA of the head and neck to rule out any vertebrobasilar insufficiency. Results as stated above. Continue Plavix and atorvastatin at current doses. We will follow him up in outpatient I have performed a history and physical on the above patient. I have reviewed the above note, and agree.
[2018-04-11 12:34] VITALS: BP 137/75
--- NOTE | 2018-04-11 14:35 | CONS ---
CONSULTATION This is an 82-year-old elderly gentleman with a known history of hypertension, hypercholesterolemia and also gastroesophageal reflux disease, who has been admitted to the hospital with episode of what seems like a TIA. However, he has recovered from this completely. The CT angiography did not reveal any significant obstructive disease. He has no more than 40% in the right internal carotid and no other significant disease is noted. The patient came in mainly with an episode of what seems to be intermittent dizziness, difficulty ambulation, but after he came up here, the symptoms seem to have resolved almost completely and is ambulating without symptoms. I was asked to see him because there was a question of arrhythmia on his telemetry. I reviewed the entire rhythm strips and noted that the patient is in sinus rhythm and he had some sinus arrhythmia, but I did not see any evidence of atrial fibrillation. The patient did have what seems to be some sinus arrhythmia, but no evidence of atrial fibrillation was noted. His blood pressure control has been optimized. He is resting comfortably without symptoms. He denies any chest pain, shortness of breath or palpitation. PAST MEDICAL HISTORY: 1. History of hypertension. 2. Hyperlipidemia. 3. Past history of TIA and recent questionable episode. 4. Status post appendectomy and hernia surgery. MEDICATIONS: At home include hydrochlorothiazide 12.5 mg daily, ( ) 10 mg daily, multivitamins, and also Tegretol he takes 200 mg b.i.d. ALLERGIES: Allergic to IBUPROFEN. He also takes Plavix and atorvastatin. yesterday in correction 2 days ago revealed a sinus mechanism with leftward axis and no acute changes. PHYSICAL EXAMINATION: Reveals a blood pressure 130/70, pulse rate of 70 per minute and regular. HEENT unremarkable. Fundus was not examined by me. Neck is supple. No JVD. I do not hear a carotid bruit. There is no thyromegaly. Heart exam reveals S1, S2 heard normally. There is a short systolic murmur at left lower sternal border. Lungs are clear. Abdomen is soft, nontender. Lower extremities reveal normal pulses. No edema. Central nervous system is normal. Echocardiogram revealed a small pericardial effusion overlying the right ventricle. IMPRESSION: 1. Hypertension. 2. Transient ischemic attack with complete resolution of symptoms. 3. No evidence of any atrial fibrillation. RECOMMENDATION: I am recommending that we increase the lisinopril to 20 mg daily and patient can be discharged. I believe Neurology wanted him on aspirin and Plavix combination. I will see him in the office in 2 weeks and patient will call for an appointment. I will also do an event monitor to see if he has any evidence of atrial fibrillation. I discussed my thoughts in detail with the patient. Thank you very much for the consultation. INA / ZIA: [id number] /
[2018-04-12] MEDS ORDERED: LISINOPRIL 20 MG TAB PO SCH (09:00)
== END 2018-04-11 13:06 | disposition home or self-care (01) | DRG 69 ==
LOC: EC 14:10 → 3SCARD 16:06
PROVIDERS: ADMIT Family Medicine; ATTEND Family Medicine
DX: G45.9 Transient cerebral ischemic attack, unspecified (principal); I67.2 Cerebral atherosclerosis; I65.23 Occlusion and stenosis of bilateral carotid arteries; I10 Essential (primary) hypertension; E78.00 Pure hypercholesterolemia, unspecified; E78.5 Hyperlipidemia, unspecified; K21.9 Gastro-esophageal reflux disease without esophagitis; Z79.02 Long term (current) use of antithrombotics/antiplatelets; Z79.899 Other long term (current) drug therapy; Z91.81 History of falling; Z86.73 Personal history of transient ischemic attack (TIA), and cerebral infarction without residual deficits; Z90.49 Acquired absence of other specified parts of digestive tract; Z88.8 Allergy status to other drugs, medicaments and biological substances; Z82.5 Family history of asthma and other chronic lower respiratory diseases
CPT/HCPCS: 36415; 70450; 70496; 70498; 70551; 71045; 80053; 80061; 82550; 82553; 83519; 84484; 85025; 85610; 85730; 93005; 93306; 93880; 95816; 99285

== ENCOUNTER → 2018-09-23 | Outpatient (CLI) | payer MEDICARE, BC | END | disposition home or self-care (01) | LOC: LABWHC1 16:26 | PROVIDERS: ATTEND Psychiatry & Neurology Neurology | DX: H53.2 Diplopia (principal) | CPT/HCPCS: 36415 ==

== ENCOUNTER → 2018-10-05 | Outpatient (CLI) | payer MEDICARE, BC ==
--- NOTE | 2018-10-05 13:40 | MR ---
EXAMINATION TYPE: MR angio head wo con DATE OF EXAM: 10/05/2018 COMPARISON: CTA head and neck April 10, 2018 HISTORY: Diplopia TECHNIQUE: Time of flight images focusing on the [place] were performed without contrast.. 2-D and 3-D postprocessing imaging is performed. FINDINGS: Dominant left vertebral artery is redemonstrated. Vertebral arteries are patent to basilar junction. There is no significant focal stenosis or aneurysmal change in the posterior circulation. T here are hypoplastic bilateral posterior communicating arteries redemonstrated. Images of the anterior circulation show small caliber but patent anterior communicating artery axial image 109. There is tortuous course to the distal internal carotid arteries bilaterally. No aneurysma l change is evident. IMPRESSION: No aneurysmal change or significant focal stenosis at level of [place] of [place]. No signi ficant change from prior.
--- NOTE | 2018-10-05 13:44 | MR ---
EXAMINATION TYPE: MR brain wo con DATE OF EXAM: 10/05/2018 COMPARISON: MRI brain April 09, 2018 HISTORY: Diplopia TECHNIQUE: Multiplanar, multisequence imaging of the brain and brainstem is performed without IV cont rast. FINDINGS: Diffusion weighted images demonstrate no evidence of a recent infarct or other diffusion abnormality. There is no worrisome extra-axial fluid collection. There is diffuse ventricular and sulcal prominenc e. There are scattered foci T2 hyperintensity seen throughout the white matter bilaterally. Approxima tely 40 scattered lesions are seen. Lesions are nonspecific in appearance and distribution. Midline structures demonstrate normal morphology. The craniocervical junction appears within normal limits. Normal vascular flow voids are present. Mild mucosal thickening bilateral ethmoid sinuses rem ains present otherwise paranasal sinuses are clear. Globes are intact bilaterally. IMPRESSION: Mild to moderate generalized cerebral atrophy and moderate chronic small vessel ischemic change redemonstrated. No significant change from prior MRI.
== END | disposition home or self-care (01) ==
LOC: RADMRIMAIN 12:50
PROVIDERS: ATTEND Psychiatry & Neurology Neurology
DX: G31.9 Degenerative disease of nervous system, unspecified (principal); I67.82 Cerebral ischemia; H53.2 Diplopia
CPT/HCPCS: 70544; 70551

== ENCOUNTER 2021-03-11 14:00 | Emergency (ER) | payer MEDICARE, BC ==
[2021-03-11] MEDS ORDERED: DIPH,PERTUS(ACELL)TETVAC-LF 0.5 ML VIAL IM ONE (14:06)
[2021-03-11] MEDS ORDERED: HYDROcodone/APAP 5-325MG 1 EACH TAB PO STA (14:06)
[2021-03-11 14:11] VITALS: RESP 18; TEMP 98.3
--- NOTE | 2021-03-11 14:55 | CT ---
EXAMINATION TYPE: CT facial bones wo con DATE OF EXAM: 03/11/2021 COMPARISON: None HISTORY: Fall today. Facial injuries. CT DLP: 964.2 mGycm Automated exposure control for dose reduction was used. Contrast: None Technique: Axial images 2 mm thick sections. Reconstructed images in the coronal plane. FINDINGS: Maxillary spine is intact. Right septal deviation is evident. Nasal bones appear intact. Some soft ti ssue injuries over the bridge of the nose. There is soft tissue swelling over the left frontal region . No underlying fractures are evident. Zygomatic arches are intact. Maxillary barroso are intact. Medial barroso of the orbits are normal. Orbit al floors appear intact. Ostiomeatal units are patent. IMPRESSION: 1. NO ACUTE OSSEOUS ABNORMALITIES FACIAL BONES. 2. SOFT TISSUE SWELLING BRIDGE OF NOSE AND LEFT FRONTAL REGION. 3. RIGHT SEPTAL DEVIATION.
--- NOTE | 2021-03-11 15:05 | CT ---
EXAMINATION TYPE: CT brain marija wo con DATE OF EXAM: 03/11/2021 COMPARISON: 04/09/2018 HISTORY: Fall today. Facial injuries. CT DLP: 969.2 mGycm, Automated exposure control for dose reduction was used. CONTRAST: Patient injected with 0 mL of Isovue 300. CT of the brain is performed utilizing 3 mm thick sections through the posterior fossa and 3 mm thick sections through the remaining calvarium. Study is performed within 24 hours of arrival to the hospital. No abnormal hyperdensity is present to suggest an acute intracranial hemorrhage. No mass lesion is evident. Punctate physiologic basal ganglia calcification may be present on the lef t. This was present previously No acute infarcts are evident. Ventricles and sulci are appropriate for the patient age. Soft tissue swelling is over the bridge of the nose and left frontal region. No acute fracture is miki dent There is an air-fluid level within the left sphenoid sinus. This could be posttraumatic. Correlate fo r sinusitis. IMPRESSIONS: 1. No acute intracranial process. 2. Superficial soft tissue swelling left frontal region and bridge of nose CT cervical spine. COMPARISON: None CT of the cervical spine is performed in the axial plane at 2 mm thick sections. Reconstructed image s in the coronal, and sagittal plane are reviewed on the computer. No acute fractures are evident. Vertebral body alignment is normal. Mild diffuse disc space narrowing is present. Vertebral body heights are preserved. No spinal canal stenosis is evident. Foraminal stenosis from facet hypertrophy and uncovertebral joint hypertrophy is present on the right at C3-4 with milder foraminal narrowing is present on the left at this level. Additional levels of f acet hypertrophy on the right are evident. Stenosis however is not evident. IMPRESSIONS: 1. Facet hypertrophy greater on the right contributing to foraminal stenosis at the C3-4 level. 2. Mild diffuse disc changes. 3. No acute osseous abnormality
[2021-03-11] MEDS ORDERED: cloNIDine HCL 0.1 MG TAB PO STA (15:15)
[2021-03-11] MEDS ORDERED: ACETAMINOPHEN TAB 500 MG TAB PO STA (15:42)
--- NOTE | 2021-03-11 15:47 | ED ---
Fall HPI - General Chief Complaint: Fall Stated Complaint: FALL on blood thinners Time Seen by Provider: 03/11/21 14:04 Source: patient, EMS Mode of arrival: EMS - History of Present Illness Initial Comments: Patient presents to the emerge department with injuries to the face after an accidental fall. He tripped over something and landed on his face. He did not lose consciousness. He has multiple scrapes and abrasions. He has no chest or belly or back pain. He has no nausea or vomiting. He has no focal weakness, lightheadedness or dizziness. - Related Data Home Medications Medication Instructions Recorded Confirmed Omeprazole [PriLOSEC] 20 mg PO AC-BRKFST 03/11/15 04/09/18 hydroCHLOROthiazide [Hydrodiuril] 12.5 mg PO DAILY 03/11/15 04/09/18 Fosinopril [Monopril] 10 mg PO DAILY 04/09/18 04/09/18 Propylene Glycol [Systane Complete] 1 drop BOTH EYES BID 04/09/18 04/09/18 carBAMazepine [TEGretol] 200 mg PO BID 04/09/18 04/09/18 Previous Rx's Medication Instructions Recorded Atorvastatin [Lipitor] 80 mg PO HS #30 tab 03/11/15 Clopidogrel [Plavix] 75 mg PO DAILY #30 tab 03/11/15 Famotidine [Pepcid] 20 mg PO BID #60 tab 04/11/18 lisinopriL [Zestril] 20 mg PO DAILY #30 tab 04/11/18 Allergies Allergy/AdvReac Type Severity Reaction Status Date / Time ibuprofen [From Advil] Allergy Swelling Verified 03/11/21 14:11 naproxen [From Aleve] Allergy Swelling Verified 03/11/21 14:11 Review of Systems ROS Statement: Those systems with pertinent positive or pertinent negative responses have been documented in the HPI. ROS Other: All systems not noted in ROS Statement are negative. Past Medical History Past Medical History: CVA/TIA, GERD/Reflux, Hyperlipidemia, Hypertension History of Any Multi-Drug Resistant Organisms: None Reported Past Surgical History: Appendectomy, Hernia Repair, Tonsillectomy Past Anesthesia/Blood Transfusion Reactions: No Reported Reaction Past Psychological History: No Psychological Hx Reported Smoking Status: Never smoker Past Alcohol Use History: None Reported Past Drug Use History: None Reported - Past Family History Father Family Medical History: COPD General Exam Limitations: no limitations General appearance: alert, in no apparent distress Head exam: Present: atraumatic, normocephalic, normal inspection Eye exam: Present: normal appearance, PERRL, EOMI. Absent: scleral icterus, conjunctival injection, periorbital swelling ENT exam: Present: normal exam, mucous membranes moist Neck exam: Present: normal inspection. Absent: tenderness, meningismus, lymphadenopathy Respiratory exam: Present: normal lung sounds bilaterally. Absent: respiratory distress, wheezes, rales, rhonchi, stridor Cardiovascular Exam: Present: regular rate, normal rhythm, normal heart sounds. Absent: systolic murmur, diastolic murmur, rubs, gallop, clicks GI/Abdominal exam: Present: soft, normal bowel sounds. Absent: distended, tenderness, guarding, rebound, rigid Extremities exam: Present: normal inspection, full ROM, normal capillary refill. Absent: tenderness, pedal edema, joint swelling, calf tenderness Back exam: Present: normal inspection Neurological exam: Present: alert, oriented X3, CN II-XII intact Psychiatric exam: Present: normal affect, normal mood Skin exam: Present: warm, abrasion Course Vital Signs 03/11/21 03/11/21 14:07 14:38 Temperature 98.3 F Pulse Rate 57 L Respiratory 18 Rate Blood Pressure 201/103 184/100 O2 Sat by Pulse 98 Oximetry Medical Decision Making - Medical Decision Making Patient presents with multiple scrapes and abrasions. I gave him pain medicine by mouth. CT head, C-spine, face show no acute emergency. Bleeding is co ntrolled with direct pressure. He is feeling much better. He has no other injuries. He has no other symptoms. He is stable for discharge. Disposition Clinical Impression: Abrasion head, Head injury Disposition: HOME SELF-CARE Condition: Good Instructions (If sedation given, give patient instructions): Head Injury (ED) Is patient prescribed a controlled substance at d/c from ED?: No Referrals: Nonstaff,Physician [Primary Care Provider] - 1-2 days
[2021-03-11 16:06] VITALS: BP 189/58; PULSE 62
== END 2021-03-11 16:06 | disposition home or self-care (01) ==
LOC: EC 14:00
DX: S00.91XA Abrasion of unspecified part of head, initial encounter (principal); S09.90XA Unspecified injury of head, initial encounter; I10 Essential (primary) hypertension; K21.9 Gastro-esophageal reflux disease without esophagitis; Z79.899 Other long term (current) drug therapy; Z88.6 Allergy status to analgesic agent; Z86.73 Personal history of transient ischemic attack (TIA), and cerebral infarction without residual deficits; W01.0XXA Fall on same level from slipping, tripping and stumbling without subsequent striking against object, initial encounter; Y92.009 Unspecified place in unspecified non-institutional (private) residence as the place of occurrence of the external cause
CPT/HCPCS: 70450; 70486; 72125; 90471; 90715; 99284

== ENCOUNTER 2023-03-11 10:55 | Emergency (ER) | payer MEDICARE, BC ==
--- NOTE | 2023-03-11 11:25 | ED ---
URI HPI - General Chief Complaint: Upper Respiratory Infection Stated Complaint: MUSA Time Seen by Provider: 03/11/23 11:10 Source: patient, RN notes reviewed Mode of arrival: ambulatory Limitations: no limitations - History of Present Illness Initial Comments: Patient is an 87-year-old male presented ER with chief complaint of a cough. Patient states she's been experienced dizziness since November. Patient reports he has been seen by 3 urgent cares and his PCP which prescribed him albuterol, Z-Chris, steroids, Tessalon Perles. Patient states none of this is helping his cough. Patient reports shortness of breath and wheezing associated with this cough. He denies any recent fevers, chills, night sweats, unintentional weight loss. He also denies headaches, congestion, ear pain, sore throat, chest pain, abdominal pain, constipation/diarrhea, urinary symptoms, peripheral edema. - Related Data Home Medications Medication Instructions Recorded Confirmed Omeprazole [PriLOSEC] 20 mg PO AC-BRKFST 03/11/15 04/09/18 carBAMazepine [TEGretol] 200 mg PO BID 04/09/18 04/09/18 Albuterol Sulfate [Albuterol 2 mg PO Q6H 03/11/23 03/11/23 Sulfate Oral Syrup] Benzonatate [Tessalon Perle] 200 mg PO TID PRN 03/11/23 03/11/23 Clopidogrel [Plavix] 75 mg PO HS 03/11/23 03/11/23 Desloratadine [Clarinex] 5 mg PO DAILY 03/11/23 03/11/23 amLODIPine BESYLATE/BENAZEPRIL 1 cap PO DAILY 03/11/23 03/11/23 [Lotrel 10-20 mg Capsule] hydroCHLOROthiazide [Hydrodiuril] 12.5 mg PO DAILY 03/11/23 03/11/23 Previous Rx's Medication Instructions Recorded Atorvastatin [Lipitor] 80 mg PO HS #30 tab 03/11/15 Ipratropium [place] 0.06%Nasal 2 spray EA NOSTRIL BID #15 ml 03/11/23 [Atrovent Nasal 0.06%] Allergies Allergy/AdvReac Type Severity Reaction Status Date / Time ibuprofen [From Advil] Allergy Swelling Verified 03/11/23 12:33 naproxen [From Aleve] Allergy Swelling Verified 03/11/23 12:33 Review of Systems ROS Statement: Those systems with pertinent positive or pertinent negative responses have been documented in the HPI. ROS Other: All systems not noted in ROS Statement are negative. Past Medical History Past Medical History: CVA/TIA, GERD/Reflux, Hyperlipidemia, Hypertension History of Any Multi-Drug Resistant Organisms: None Reported Past Surgical History: Appendectomy, Hernia Repair, Tonsillectomy Past Anesthesia/Blood Transfusion Reactions: No Reported Reaction Past Psychological History: No Psychological Hx Reported Smoking Status: Never smoker Past Alcohol Use History: None Reported Past Drug Use History: None Reported - Past Family History Father Family Medical History: COPD General Exam Limitations: no limitations General appearance: alert, in no apparent distress Head exam: Present: atraumatic, normocephalic, normal inspection Eye exam: Present: normal appearance, PERRL, EOMI, other. Absent: scleral icterus, conjunctival injection, periorbital swelling Pupils: Present: normal accommodation ENT exam: Present: normal exam, mucous membranes moist, TM's normal bilaterally, normal external ear exam Neck exam: Present: normal inspection. Absent: tenderness, meningismus, lymphadenopathy Respiratory exam: Present: normal lung sounds bilaterally. Absent: respiratory distress, wheezes, rales, rhonchi, stridor Cardiovascular Exam: Present: regular rate, normal rhythm, normal heart sounds. Absent: systolic murmur, diastolic murmur, rubs, gallop, clicks GI/Abdominal exam: Present: soft, normal bowel sounds. Absent: distended, tenderness, guarding, rebound, rigid Neurological exam: Present: alert, oriented X3, CN II-XII intact Psychiatric exam: Present: normal affect, normal mood Skin exam: Present: warm, dry, intact, normal color. Absent: rash Course Vital Signs 03/11/23 03/11/23 11:00 12:31 Temperature 97.6 F Pulse Rate 75 68 Respiratory 16 18 Rate Blood Pressure 124/74 122/74 O2 Sat by Pulse 97 97 Oximetry Medical Decision Making - Medical Decision Making Was pt. sent in by a medical professional or institution (, PA, EDUCATIONAL AIDE, urgent care, hospital, or jail...) When possible be specific @ -No Did you speak to anyone other than the patient for history (EMS, parent, family, police, friend...)? What history was obtained from this source @ -No Did you review nursing and triage notes (agree or disagree)? Why? @ -I reviewed and agree with nursing and triage notes Were old charts reviewed (outside hosp., previous admission, EMS record, old EKG, old radiological studies, urgent care reports/EKG's, jail records)? Report findings @ -No old charts were reviewed Differential Diagnosis (chest pain, altered mental status, abdominal pain women, abdominal pain men, vaginal bleeding, weakness, fever, dyspnea, syncope, headache, dizziness, GI bleed, back pain, seizure, CVA, palpatations, mental health, musculoskeletal)? @ -Differential Dyspnea: Viral URI, cold, allergic rhinitis EKG interpreted by me (3pts min.). @ -None X-rays interpreted by me (1pt min.). @ -Chest x-ray obtained in the ER shows no acute cardiopulmonary processes. CT interpreted by me (1pt min.). @ -None done U/S interpreted by me (1pt. min.). @ -None done What testing was considered but not performed or refused? (CT, X-rays, U/S, labs)? Why? @ -None What meds were considered but not given or refused? Why? @ -None Did you discuss the management of the patient with other professionals (professionals i.e. , PA, EDUCATIONAL AIDE, lab, RT, psych nurse, social worker assistant, licensed weigher, teacher, booking police officer, mental health case manager)? Give summary @ -No Was smoking cessation discussed for >3mins.? @ -No Was critical care preformed (if so, how long)? @ -No Were there social determinants of health that impacted care today? How? (Homelessness, low income, unemployed, alcoholism, drug addiction, transportation, low edu. Level, literacy, decrease access to med. care, nursing home, rehab)? @ -No Was there de-escalation of care discussed even if they declined (Discuss DNR or withdrawal of care, Hospice)? DNR status @ -No What co-morbidities impacted this encounter? (DM, HTN, Smoking, COPD, CAD, Cancer, CVA, ARF, Chemo, Hep., AIDS, mental health diagnosis, sleep apnea, morbid obesity)? @ -None Was patient admitted / discharged? Hospital course, mention meds given and r oute, prescriptions, significant lab abnormalities, going to OR and other pertinent info. @ -Discharged. Upon examination patient's lungs were clear bilaterally with no wheezing. Chest x-ray showed no acute cardiopulmonary processes. Patient states he take nasal spray everyday which doesnt help. He also has an appointment with an allergy doctor next week. Patient will be discharged home with a prescription for ipratropium nasal spray. I discussed with the patient return parameters. Patient is to follow-up with information specialist and PCP for further care. Undiagnosed new problem with uncertain prognosis? @ -No Drug Therapy requiring intensive monitoring for toxicity (Heparin, Nitro, Insulin, Cardizem)? @ -No Were any procedures done? @ -No Diagnosis/symptom? @ -Allergic rhinitis/ post nasal drip Acute, or Chronic, or Acute on Chronic? @ -Chronic Uncomplicated (without systemic symptoms) or Complicated (systemic symptoms)? @ -Uncomplicated Side effects of treatment? @ -No Exacerbation, Progression, or Severe Exacerbation? @ -No Poses a threat to life or bodily function? How? (Chest pain, USA, NC, pneumonia, PE, COPD, DKA, ARF, appy, cholecystitis, CVA, Diverticulitis, Homicidal, Suicidal, threat to staff... and all critical care pts) @ -No - Radiology Data Radiology results: report reviewed, image reviewed Disposition Clinical Impression: Allergic rhinitis Disposition: HOME SELF-CARE Condition: Stable Additional Instructions: Please return to the Emergency Department if symptoms worsen or any other concerns. Prescriptions: Ipratropium [place] 0.06%Nasal [Atrovent Nasal 0.06%] 2 spray EA NOSTRIL BID #15 ml Is patient prescribed a controlled substance at d/c from ED?: No Referrals: Nonstaff,Physician [Primary Care Provider] - 1-2 days Time of Disposition: 12:19
[2023-03-11 11:28] VITALS: TEMP 97.6
--- NOTE | 2023-03-11 11:59 | XR ---
EXAMINATION TYPE: XR chest 2V DATE OF EXAM: 03/11/2023 COMPARISON: 04/09/2018 TECHNIQUE: PA and lateral views submitted. HISTORY: Cough FINDINGS: The lungs are clear and there is no pneumothorax, pleural effusion, or focal pneumonia. Heart size normal and no overt failure. Osseous structures demonstrate hypertrophic and degenerative changes of the spine. Hyperinflation. Diffuse osteopenia with arthropathy of the AC joints. IMPRESSION: 1. No acute process. Correlate for COPD.
[2023-03-11 12:54] VITALS: BP 122/74; PULSE 68; RESP 18
== END 2023-03-11 12:32 | disposition home or self-care (01) ==
LOC: EC 10:55
DX: J30.9 Allergic rhinitis, unspecified (principal); I10 Essential (primary) hypertension; K21.9 Gastro-esophageal reflux disease without esophagitis; Z79.899 Other long term (current) drug therapy; Z88.6 Allergy status to analgesic agent; Z90.49 Acquired absence of other specified parts of digestive tract; Z86.73 Personal history of transient ischemic attack (TIA), and cerebral infarction without residual deficits
CPT/HCPCS: 71046; 99284

== ENCOUNTER → 2023-04-21 | Outpatient (CLI) | payer MEDICARE, BC ==
--- NOTE | 2023-04-21 13:20 | CT ---
EXAMINATION TYPE: CT chest wo con DATE OF EXAM: 04/21/2023 COMPARISON: None HISTORY: cough and MUSA x few months CT DLP: 317.10 mGycm. Automated Exposure Control for Dose Reduction was Utilized. TECHNIQUE: CT scan of the thorax is performed without IV contrast. FINDINGS: There is moderate honeycombing in the lung bases bilaterally consistent with usual interstitial pneum onia. There is no airspace consolidation. There is no pleural effusion or pneumothorax. The great vessels chest appear normal and there is no mediastinal, hilar or axillary adenopathy. Limited scanning the upper abdomen reveals a large right renal cyst but no other significant abnormal ity. No focal osseous lesions are seen. IMPRESSION: 1. Chronic lung changes in the lung bases described above. Findings most consistent with usual inters titial pneumonia. 2. no acute cardiopulmonary disease.
== END | disposition home or self-care (01) ==
LOC: RADCTMAIN 11:10
PROVIDERS: ATTEND Internal Medicine
DX: R91.8 Other nonspecific abnormal finding of lung field (principal); R05.9 Cough, unspecified
CPT/HCPCS: 71250

== ENCOUNTER 2023-05-06 11:42 | Day surgery (SDC) | payer MEDICARE, BC ==
[2023-04-30 11:50] VITALS: BMI 26.7
[~2023-05-06 11:42] MED LIST: ATROPINE SULFATE 0.4 MG/ML 1 ML VIAL IM ONE; LACTATED RINGERS 1,000 ML IV SCH; LIDOCAINE 1% (10MG/ML) FOR IV START INTRADERMA PRN
[2023-05-06] MEDS ORDERED: ONDANSETRON 4 MG/2 ML VIAL IVP ONE (12:43)
[2023-05-06] MEDS ORDERED: DEXAMETHASONE SOD PHOSPHATE 4 MG/ML 1 ML VIAL IVP ONE (12:44)
[2023-05-06] MEDS ORDERED: ONDANSETRON 4 MG/2 ML VIAL ONE (12:45)
[2023-05-06] MEDS ORDERED: PROPOFOL 10 MG/ML 20 ML VIAL IV ONE (12:53)
[2023-05-06] MEDS ORDERED: LIDOCAINE 2% (PF) 20 MG/ML 5 ML VIAL ONE (12:53)
[2023-05-06] MEDS ORDERED: fentaNYL (PF) 50 MCG/ML 2 ML AMP ONE (12:53)
[2023-05-06] MEDS ORDERED: SUCCINYLCHOLINE CHLORIDE 200 MG/10 ML VIAL IV ONE (12:53)
[2023-05-06 13:50] VITALS: TEMP 97
--- NOTE | 2023-05-06 14:10 | XR ---
EXAMINATION TYPE: XR chest 1V portable DATE OF EXAM: 05/06/2023 Comparison: 03/11/2023 Clinical History: 87-year-old male sp bronch, bx Findings: Heart normal size. Aorta within normal limits. Mild patchy interstitial densities especially in the l ower lungs with low lung volumes. No appreciable pneumothorax or pleural effusion. Impression: Mild patchy interstitial density. Findings may be on the basis of hypoventilatory change. Correlate t o exclude underlying atypical/COVID pneumonia.
[2023-05-06 14:38] VITALS: BP 152/77; PULSE 83; RESP 15
--- NOTE | 2023-05-06 18:00 | FL ---
EXAMINATION TYPE: FL bronchoscopy DATE OF EXAM: 05/06/2023 FLUOROSCOPY Fluoroscopy time of 34 seconds was used during right lung bronchoscopy for chronic cough. 1 image/s document/s the procedure. DAP 1.6910 Gycm2.
--- NOTE | 2023-05-06 19:14 | PCN ---
PROCEDURE NOTE PULMONARY/CRITICAL CARE PROCEDURE NOTE: PROCEDURES PERFORMED: Bronchoscopy; airway examination; therapeutic lavage; BAL, right lower lobe; brushes, right lower lobe; and transbronchial and endobronchial biopsies, right lower lobe. PREOPERATIVE DIAGNOSES: Scarring, right lower lobe, rule out infection, versus interstitial lung disease, versus sarcoidosis, versus cryptogenic organizing pneumonia. ANESTHESIA PROVIDED: General anesthesia. The patient's procedure took place in room #1 [facility]. DOOR PULLER: Dr. Boucher. FIRST HACK SAW OPERATOR: Dr. Michelle Teague. DESCRIPTION OF PROCEDURE: The patient received general anesthesia from [facility]. After the patient was on the effects of general anesthesia, and intubated, the bronchoscope was then inserted through the bronchoscope adapter connected to the endotracheal tube. The bronchoscope was taken through the endotracheal tube down to the trachea. The trachea appeared normal. The tracheal artur was sharp. The right upper lobe and its 3 segments, right middle lobe and its 2 segments, right lower lobe and its 5 segments, left upper lobe proper and its 2 segments, lingula and its 2 segments, and left lower lobe and its 4 segments all had similar findings of mild to moderate airway secretions. The mucosa appeared relatively normal. There was no dominant mass or tumor. Of note was the fact that there were many more secretions noted in the left lower lobe than the other segments. Next, under fluoroscopic guidance, we did brushes to the right lower lobe. Subsequent to that, we did multiple endobronchial and transbronchial biopsies in the area of the right lower lobe. They were all done under fluoroscopic guidance. We got at least 9 to 10 good biopsy pieces. After that, finally, we did washes to the right lower lobe. About 30 mL of turbid fluid mixed with blood, was recovered. All specimens to go to the laboratory to be analyzed. The patient will need a chest x-ray in the recovery area after the patient is extubated from the ventilator machine. The patient will be discharged home. He will follow up with me in the office. There was no immediate complication. The patient tolerated the procedure well. There was no obvious pneumothorax noted on fluoroscopy, before the patient was extubated. MMODL / IJN: [id number] /
[2023-05-06 20:04] LABS: Appearance,BF Turbid (Clear); RBC, Body Fluid 4075 /UL (0-2000)
[2023-05-07 09:52] LABS: Nucleated Cells, Body Fluid 105 /UL
== END 2023-05-06 15:05 | disposition home or self-care (01) ==
LOC: ORWHC2ENDO 11:42
PROVIDERS: ATTEND Internal Medicine Critical Care Medicine
DX: J98.4 Other disorders of lung (principal); I10 Essential (primary) hypertension; E78.5 Hyperlipidemia, unspecified; K21.9 Gastro-esophageal reflux disease without esophagitis; Z86.73 Personal history of transient ischemic attack (TIA), and cerebral infarction without residual deficits; Z79.02 Long term (current) use of antithrombotics/antiplatelets; Z79.899 Other long term (current) drug therapy; Z98.890 Other specified postprocedural states; Z88.6 Allergy status to analgesic agent
CPT/HCPCS: 88104; 88108; 88305; 89050; 87070; 87205; 87116; 87102; 87206; 71045; 31628; 31623; 31624; J0330; J0461; J1100; J2405; J3010; J2704; J2001

== ENCOUNTER → 2024-04-07 | Outpatient (CLI) | payer MEDICARE, BC ==
[2024-04-07 19:12] LABS: Basophils # (A) 0.05 X 10*3/uL (0.00-0.10); Basophils % (A) 0.9 %; Eosinophils # (A) 0.23 X 10*3/uL (0.04-0.35); HCT 41.3 % (39.6-50.0); HGB 13.7 g/dL (13.0-17.0); Lymphocytes # (A) 1.19 X 10*3/uL (0.90-5.00); MCH 29.7 pg (27.0-32.0); MCHC 33.2 g/dL (32.0-37.0); MCV 89.6 FL (80.0-97.0); Mean Platelet Volume 9.6 FL (9.5-12.2); Monocytes # (A) 0.81 X 10*3/uL (0.20-1.00); Monocytes % (A) 14.3 %; NRBC Per 100 WBC 0 X 10*3/uL (0.00-0.01); Neutrophils # (A) 3.37 X 10*3/uL (1.80-7.70); Neutrophils % (A) 59.3 %; Platelet Count 291 X 10*3/uL (140-440); RBC 4.61 X 10*6/uL (4.40-5.60); RDW 13.3 % (11.5-14.5); WBC 5.68 X 10*3/uL (4.50-10.00)
[2024-04-07 19:29] LABS: BUN/Creat Ratio 20.11 Ratio (12.00-20.00); Blood Urea Nitrogen 18.1 mg/dL (9.0-27.0); Chloride 94 mmol/L (96-109); Glucose 96 mg/dL (70-110); Potassium 3.8 mmol/L (3.5-5.5); Sodium 134 mmol/L (135-145)
[2024-04-07 19:30] LABS: ALT 24 U/L (10-49); AST 33 U/L (14-35); Albumin 3.7 g/dL (3.8-4.9); Albumin/Globulin Ratio 1.37 Ratio (1.60-3.17); Alkaline Phosphatase 166 U/L (41-126); Calcium 9.3 mg/dL (8.7-10.3); Carbon Dioxide 30.7 mmol/L (21.6-31.8); Globulin 2.7 g/dL (1.6-3.3); Total Bilirubin 0.2 mg/dL (0.3-1.2); Total Protein 6.4 g/dL (6.2-8.2)
== END | disposition home or self-care (01) ==
LOC: LABWHC1 13:32
PROVIDERS: ATTEND Psychiatry & Neurology Neurology
DX: G50.0 Trigeminal neuralgia (principal); Z86.73 Personal history of transient ischemic attack (TIA), and cerebral infarction without residual deficits
CPT/HCPCS: 36415; 80053; 85025